=== PATIENT | male | born 1950 | race Caucasian/White ===

== ENCOUNTER → 2017-01-22 | Outpatient (CLI) | payer OTHER ==
--- NOTE | ~2017-01-22 | CT15 ---
[facility] A Service of [facility] & [facility] RADIOLOGY TEXT RESULTS PATIENT: BRENNA MCFARLANE LOCATION: [facility] : 50 UNIT #: [id number] AGE: [address]: Yoana Bernstein MD SEX: M ORDER DR: [id number] [facility] [address] [place], [place] [address] [id number] O MR#: [id number] #: [id number] NAME: BRENNA MCFARLANE : 1950 SEX: M STUDY DATE/TIME: 01/22/2017 14:49 UNIT: [facility] ROOM: STUDY DESCRIPTION: CT Angio Chest Attending Physician: Yoana Bernstein M.D. Ordering Physician: Yoana Bernstein M.D. Primary Care Physician: Yoana Bernstein M.D. MEDICAL IMAGING REPORT This report is preliminary unless electronic signature is present EXAM CT angiography the chest with contrast 01/22/2017 HISTORY Physician's order states subclavian steal syndrome. Patient denies current complaints. Diabetes. COMPARISON CT chest with contrast 12/30/2012. PROCEDURE 2 mm axial images from the thoracic inlet through the upper abdomen after IV contrast administration. 3-D reformatted images were obtained at a dedicated workstation. This CT examination was performed with one or more of the following radiation dose reduction techniques: automatic exposure control, adjustment of mA and/or kV according to patient size, and iterative reconstruction. FINDINGS There is conventional branching pattern of the great arteries from the aortic arch. There is mild atherosclerotic plaque within the proximal left vertebral artery near its origin with only mild stenosis but no flowing-limiting stenosis is seen. The proximal left subclavian artery demonstrates moderate stenosis, approximately 45% to 50%, distal to the takeoff of the left vertebral artery, with mild to moderate irregular soft plaquing within the left subclavian artery, particularly where it crosses between the level of the clavicle and first rib. However, there is no proximal left subclavian artery occlusion, as would typically be seen with subclavian steal syndrome. The left common carotid artery and brachiocephalic artery, right common carotid artery and right vertebral artery appear patent. STS. [facility] A Service of [facility] & [facility] RADIOLOGY TEXT RESULTS PATIENT: BRENNA MCFARLANE LOCATION: [facility] : 50 UNIT #: [id number] AGE: [address]: Yoana Bernstein MD SEX: M ORDER DR: Thoracic aortic caliber is within normal limits. Heart size is within normal limits. A 5 mm noncalcified nodule in the right upper lobe above the major fissure is stable since 06/01/2013 in keeping with a benign finding. Mild centrilobular and paraseptal emphysematous changes are present. Calcified and noncalcified pleural plaques are present bilaterally, right greater than left. No acute airspace disease is seen. Benign calcified granulomatous changes are seen within the mediastinum, right hilum, and within both lungs. Included portions of the upper abdominal organs are within normal limits. Mild atherosclerotic plaquing is seen within the bilateral renal arteries and mesenteric vessels without evidence of high-grade stenosis. IMPRESSION 1. There is mild atherosclerotic plaquing of the left vertebral artery near its origin without high-grade stenosis seen. 2. The proximal left subclavian artery at and just distal to its origin appears patent. However, there is moderate approximately 45% to 50% luminal stenosis of the left subclavian artery after the takeoff of the left vertebral artery. There is more mild to [id number] atherosclerotic plaquing in the left subclavian artery as it goes through the thoracic inlet; however, no subclavian artery occlusion or severe stenosis is identified. 3. Stable 5 mm noncalcified right upper lobe pulmonary nodule since 2012, in keeping with a benign finding. No further followup is warranted with respect to this nodule. It likely represents a benign noncalcified granuloma, given the calcified granulomatous changes elsewhere within the chest. 4. Emphysema. 5. 1.1-cm noncalcified right thyroid nodule, unchanged since 2012, not included in the body of the report. Dictated by..Rico Torres M.D. THIS IS AN ELECTRONICALLY VERIFIED REPORT Connie Torres M.D. at 01/23/2017 5:06 PM JOANA/evaristo TD: 01/23/2017 09:04 JOB #: [id number] MEDICAL IMAGING REPORT Page 1 of 1 COPY
[2017-01-22 15:46] LABS: POC - CREATININE 0.81 mg/dL (0.64-1.27); POC - GFR >60.0 mL/min (>60)
== END | disposition home or self-care (01) ==
LOC: CCAT 13:56
PROVIDERS: Family Medicine
DX: G45.8 Other transient cerebral ischemic attacks and related syndromes (principal); I67.2 Cerebral atherosclerosis; R91.1 Solitary pulmonary nodule; E04.1 Nontoxic single thyroid nodule
CPT/HCPCS: 71275; 82565; Q9967